=== PATIENT | female | born 1940 | race Caucasian/White ===

== ENCOUNTER → 2017-01-27 | Outpatient (CLI) | payer MEDICARE, BC ==
[~2017-01-27] MED LIST: ACID CONTROL150 MG PO; ARICEPT10 MG PO; ASPIRIN81 MG PO; BENADRYL25 MG PO; FLOVENT DISKUS50 MCG NASBOTH; LEVAQUIN500 MG PO; LIPITOR20 MG PO; MELATONIN1 M1 PO; MILK OF MAGNESI30 ML PO; PRILOSEC20 MG PO; SYNTHROID25 MCG PO; XANAX0.5 MG PO
== END | disposition short-term general hospital (02) ==
LOC: CLCARD 10:14
DX: R55 Syncope and collapse (principal); I45.10 Unspecified right bundle-branch block; E78.5 Hyperlipidemia, unspecified; R53.83 Other fatigue; Z79.82 Long term (current) use of aspirin; Z79.899 Other long term (current) drug therapy

== ENCOUNTER → 2017-02-10 | Outpatient (CLI) | payer MEDICARE, BC | END | disposition short-term general hospital (02) | LOC: CLCARD 02:45 | DX: R06.00 Dyspnea, unspecified (principal); Z79.82 Long term (current) use of aspirin; Z79.899 Other long term (current) drug therapy ==